=== PATIENT | female | born 1985 | race African-American/Black ===

== ENCOUNTER 2018-02-01 12:17 | Emergency (ER) | payer MEDICAID ==
[~2018-02-01] VITALS: Ht 162.6 cm; Wt 83.9 kg
[2018-02-01 12:46] VITALS: Ht 162.6 cm; Wt 83.9 kg
[2018-02-01 16:59] VITALS: BP 120/64
== END 2018-02-01 16:59 | disposition home or self-care (01) ==
LOC: ED 12:17
DX: K62.89 Other specified diseases of anus and rectum (principal); K64.8 Other hemorrhoids; F20.9 Schizophrenia, unspecified